=== PATIENT | male | born 2000 | race African-American/Black ===

== ENCOUNTER 2022-11-06 19:50 | Emergency (ER) | payer MEDICAID ==
[~2022-11-06] VITALS: Ht 182.9 cm; Wt 210.8 kg
[2022-11-06 21:06] VITALS: BP 135/90; PULSE 93; RESP 20; TEMP 99.1; O2SAT 100
[2022-11-06] MEDS ORDERED: HYDROcodone-ACET 5/325MG TAB PO ONE (22:00)
[2022-11-06] MEDS ORDERED: CYCL-839 PO (23:33)
[2022-11-06] MEDS ORDERED: IBUP1TAB5 PO (23:33)
== END 2022-11-07 04:17 | disposition home or self-care (01) ==
LOC: ER 19:50
DX: S33.5XXA Sprain of ligaments of lumbar spine, initial encounter (principal); S13.9XXA Sprain of joints and ligaments of unspecified parts of neck, initial encounter; S00.03XA Contusion of scalp, initial encounter; V49.9XXA Car occupant (driver) (passenger) injured in unspecified traffic accident, initial encounter; W22.10XA Striking against or struck by unspecified automobile airbag, initial encounter; Y93.89 Activity, other specified; Y92.488 Other paved roadways as the place of occurrence of the external cause; Y99.8 Other external cause status
CPT/HCPCS: 70450; 72125; 72131